=== PATIENT | male | born 1980 | race African-American/Black ===

== ENCOUNTER 2018-12-15 21:19 | Emergency (ER) | payer SELFPAY ==
[2018-12-15 21:47] VITALS: Ht 195.6 cm
[2018-12-16 00:46] VITALS: BP 129/91
== END 2018-12-16 00:46 | disposition home or self-care (01) ==
LOC: ED 21:19
DX: S91.131A Puncture wound without foreign body of right great toe without damage to nail, initial encounter (principal); J45.909 Unspecified asthma, uncomplicated; X58.XXXA Exposure to other specified factors, initial encounter; Y93.89 Activity, other specified; Y92.89 Other specified places as the place of occurrence of the external cause; Y99.8 Other external cause status